=== PATIENT | female | born 1990 | race Asian ===

== ENCOUNTER 2021-07-07 20:58 | Inpatient (IN) | payer SELFPAY ==
[2021-07-07 21:44] LABS: #Basophils 0.1 thou/uL (0.0-0.2); #Eosinphils 0.4 thou/uL (0.0-0.7); #Lymphocytes 3.1 thou/uL (1.20-3.40); #Monocytes 1.3 thou/uL (0.11-0.59); #Neutrophils 13.7 thou/uL (1.40-6.50); %Basophils 0.5 % (0.0-1.0); %Eosinophils 2.3 % (0.0-10.0); %Lymphocytes 16.5 % (21.0-51.0); %Monocytes 7.1 % (0.0-10.0); %Neutrophils 73.5 % (42.0-75.0); Hemoglobin 15.4 g/dL (12.0-16.0); Mean Corpuscular HGB CONC 34.2 g/dL (32.0-36.0); Mean Corpuscular Hemoglobin 31.8 pg (27.0-31.0); Mean Platelet Volume 8.3 fL (7.4-10.4); Platelet Count 256 thou/uL (130-400); Red Blood Cell (RBC) Count 4.84 mill/uL (4.20-5.40); White Blood Cell (WBC) Count 18.6 thou/uL (4.8-10.8)
[2021-07-07 22:04] LABS: ALT (SGPT) 21 U/L (8-55); AST (SGOT) 30 U/L (5-34); Albumin 4.3 g/dL (3.5-5.0); Alkaline Phosphatase 51 U/L (40-110); Anion Gap 13 mmol/L (10-20); BUN (Urea Nitrogen) 14 mg/dL (7.0-18.7); Bilirubin, Total 0.7 mg/dL (0.2-1.2); Calc. Creatinine Clearance 0 mL/min (70-130); Calcium 9.3 mg/dL (7.8-10.44); Carbon Dioxide 22 mmol/L (22-29); Chloride 104 mmol/L (98-107); Glucose 97 mg/dL (70-105); Lipase 30 U/L (8-78); Potassium 3.8 mmol/L (3.5-5.1); Protein, Total 7.3 g/dL (6.0-8.3); Sodium 135 mmol/L (136-145)
[2021-07-07] MEDS ORDERED: Ondansetron PF 4 MG/2 ML Vial ONE (22:17)
[2021-07-07] MEDS ORDERED: Morphine 4 MG/ML VIAL ONE (22:17)
[2021-07-08] MEDS ORDERED: Piperacillin/Tazobactam 4.5 GM VIAL ONE (00:19)
[2021-07-08] MEDS ORDERED: Morphine 4 MG/ML VIAL ONE (00:19)
[2021-07-08 01:03] LABS: BHCG - Serum Negative (NEGATIVE); Pregs Control Background? CLEAR/WHITE (CLR/WHITE); Pregs Control Bar Appear? YES (CONTROL BAR)
[2021-07-08 01:54] LABS: Bilirubin Negative (Negative); Blood, Urine Negative (Negative); Clarity Clear (Clear); Glucose, Urine (Dipstick) Normal (Negative); Ketone, Urine 100 mg/dL (Negative); Leukocyte Negative Leu/uL (Negative); Nitrite Negative (Negative); Protein, Urine (Dipstick) 10 mg/dL (Neg-Trace); Urobilinogen Normal mg/dL (Less than 2); pH, Urine 5.5 (5.0-9.0)
[2021-07-08 01:56] LABS: Pregnancy Test - Urine (BHCG) Negative (Negative); Pregu Control Background? CLEAR/WHITE (CLR/WHITE); Pregu Control Bar Appear? YES (CONTROL BAR); Specific Gravity Greater than 1.060 (1.002-1.036); Specific Gravity, Urine Greater than 1.060 (1.002-1.036)
[2021-07-08] MEDS ORDERED: Morphine 4 MG/ML VIAL SLOW IVP PRN ×2 (02:42→13:36)
[2021-07-08] MEDS ORDERED: Ondansetron PF 4 MG/2 ML Vial IVP PRN ×2 (02:45→13:37)
[2021-07-08] MEDS ORDERED: Acetaminophen 325 MG TAB PO PRN ×2 (02:45→13:35)
[2021-07-08] MEDS ORDERED: Ondansetron ODT 4 MG TAB SL PRN ×2 (02:45→13:36)
[2021-07-08 02:58] VITALS: BMI 19.5
[2021-07-08 03:15] LABS: SARS-CoV-2 NAA Rapid Test Not Detected (NotDetected)
[2021-07-08] MEDS: D5 1/2 NS w/20 mEq KCL 1,000 ML IV SCH ×4 (03:22→22:22)
[2021-07-08] MEDS: Piperacillin/Tazobactam 3.375 GM in Sodium Chloride 0.9% 100 ML IVPB SCH ×2 (13:39→22:22)
[2021-07-08] MEDS ORDERED: Ondansetron ODT 4 MG TAB PO PRN (13:45)
[2021-07-08] MEDS ORDERED: Ondansetron PF 4 MG/2 ML Vial ONE (14:08)
[2021-07-08] MEDS ORDERED: Ketorolac Tromethamine 30 MG/ML VIAL ONE (14:42)
[2021-07-08] MEDS ORDERED: Lidocaine 1% w/Epinephrine 1:100K 20 ML VIAL ONE (15:53)
[2021-07-08] MEDS ORDERED: Bupivacaine 0.25% HCL 30 ML VIAL ONE (15:53)
[2021-07-08] MEDS ORDERED: Fentanyl 100 MCG/2 ML VIAL ONE (15:57)
[2021-07-08] MEDS ORDERED: Rocuronium Bromide 10 MG/ML (10ML VIAL) ONE (16:16)
[2021-07-08] MEDS ORDERED: Lidocaine 1% PF 5 ML VIAL ONE (16:16)
[2021-07-08] MEDS ORDERED: Dexamethasone 20 MG/5 ML VIAL ONE (16:16)
[2021-07-08] MEDS ORDERED: Succinylcholine 200 MG/10 ml SYRINGE FS ONE (16:16)
[2021-07-08] MEDS ORDERED: PROPOFOL 200 MG/20 ML VIAL ONE (16:16)
[2021-07-08] MEDS ORDERED: Meperidine HCl/PF 25 MG/ML VIAL ONE (17:22)
[2021-07-08] MEDS ORDERED: Ondansetron HCl/PF 4 MG/2 ML Vial IVP PRN (17:26)
[2021-07-08] MEDS ORDERED: Promethazine HCl 25 MG/ML VIAL IVPB PRN (17:26)
[2021-07-08] MEDS ORDERED: Meperidine HCl/PF 25 MG/ML VIAL SLOW IVP PRN (17:26)
[2021-07-08] MEDS ORDERED: Promethazine HCl 25 MG/ML VIAL IM PRN (17:26)
[2021-07-08 19:57] VITALS: BP 113/73; TEMP 97.7
== END 2021-07-08 23:24 | disposition home or self-care (01) | DRG 343 ==
LOC: ERS 20:58 → T4-B 07-08 00:56
PROVIDERS: ADMIT Specialist; ATTEND Specialist
PROC: 0DTJ4ZZ Resection of Appendix, Percutaneous Endoscopic Approach (ICD-10-PCS; principal; 2021-07-08)
DX: K35.80 Unspecified acute appendicitis (principal); F41.9 Anxiety disorder, unspecified; F31.9 Bipolar disorder, unspecified; F43.10 Post-traumatic stress disorder, unspecified; F17.210 Nicotine dependence, cigarettes, uncomplicated; Z20.822 Contact with and (suspected) exposure to COVID-19
CPT/HCPCS: 36415; 74177; 80053; 81003; 81025; 83690; 84703; 85025; 88304; 96365; 96375; 96376; J1100; J1885; J2175; J2270; J2405; J2543; J2704; J3010; J3480; J3490; S0020; U0002

== ENCOUNTER 2021-09-02 14:13 | Observation (INO) | payer SELFPAY ==
[2021-09-02] MEDS ORDERED: Morphine 4 MG/ML VIAL ONE (15:52)
[2021-09-02] MEDS ORDERED: Ondansetron PF 4 MG/2 ML Vial ONE ×2 (15:53→20:56)
[2021-09-02] MEDS ORDERED: Ketorolac Tromethamine 30 MG/ML VIAL ONE (17:08)
[2021-09-02 17:18] LABS: SARS-CoV-2 NAA Rapid Test Not Detected (NotDetected)
[2021-09-02 19:50] LABS: BHCG - Serum Negative (NEGATIVE); Pregs Control Background? CLEAR/WHITE (CLR/WHITE); Pregs Control Bar Appear? YES (CONTROL BAR)
[2021-09-02] MEDS ORDERED: Fentanyl 100 MCG/2 ML VIAL ONE (19:55)
[2021-09-02] MEDS ORDERED: Ketorolac Tromethamine 30 MG/ML VIAL IVP SCH (20:00)
[2021-09-02] MEDS ORDERED: CEFAZOLIN 2 GM in Premix Bag 1 BAG IVPB SCH (20:15)
[2021-09-02] MEDS ORDERED: Bacitracin Zinc Ointment 30 gm TUBE ONE (20:21)
[2021-09-02] MEDS ORDERED: Neomycin-Polymyxin 1 ML AMP ONE (20:21)
[2021-09-02] MEDS ORDERED: Bupivacaine PF 0.5% 30 ML VIAL ONE (20:22)
[2021-09-02] MEDS ORDERED: Lidocaine 1% PF 5 ML VIAL ONE (20:56)
[2021-09-02] MEDS ORDERED: PROPOFOL 200 MG/20 ML VIAL ONE (20:56)
[2021-09-02] MEDS ORDERED: Dexamethasone 20 MG/5 ML VIAL ONE (20:56)
[2021-09-02] MEDS ORDERED: ePHEDrine 50 MG/ML VIAL ONE (20:56)
[2021-09-02] MEDS ORDERED: Meperidine HCl/PF 25 MG/ML VIAL ONE (22:14)
[2021-09-02] MEDS ORDERED: Bisacodyl 10 MG SUPP PR PRN (22:33)
[2021-09-02] MEDS ORDERED: Morphine 4 MG/ML VIAL SLOW IVP PRN (22:33)
[2021-09-02] MEDS ORDERED: Promethazine HCl 25 MG/ML VIAL IM PRN (22:33)
[2021-09-02] MEDS ORDERED: traMADol HCl 50 MG TAB PO PRN (22:33)
[2021-09-02] MEDS ORDERED: Acetaminophen 325 MG TAB PO PRN (22:33)
[2021-09-02] MEDS ORDERED: HYDROcodone/Acetaminophen 5/325 mg Tablet PO PRN (22:33)
[2021-09-02] MEDS ORDERED: Fentanyl 100 MCG/2 ML VIAL SLOW IVP PRN (22:33)
[2021-09-02] MEDS ORDERED: Ondansetron PF 4 MG/2 ML Vial SLOW IVP PRN (22:33)
[2021-09-02] MEDS ORDERED: Meperidine HCl/PF 25 MG/ML VIAL IM PRN (22:38)
[2021-09-02] MEDS ORDERED: TETANUS AND DIPHTHERIA TOX/PF 0.5 ML DISP.SYRIN IM SCH (22:45)
[2021-09-02] MEDS ORDERED: Communication Order-Pharmacy FS SCH (22:45)
[2021-09-02] MEDS: Sodium Chloride 0.9% 100 ML IV SCH (23:30)
[2021-09-03] MEDS: HYDROcodone/Acetaminophen 10/325 mg Tablet PO PRN ×2 (00:31→13:15)
[2021-09-03] MEDS: Ketorolac Tromethamine 30 MG/ML VIAL IVP SCH ×4 (00:33→17:07)
[2021-09-03 00:54] VITALS: BMI 18.4
[2021-09-03] MEDS: Sodium Chloride 0.9% 100 ML IV SCH ×9 (02:20→14:25)
[2021-09-03] MEDS: Dextrose 5 % And 0.9 % NaCl 1,000 ML IV SCH ×2 (02:21→08:58)
[2021-09-03] MEDS: Gentamicin Sulfate 80 MG in Premix Bag 1 BAG IVPB SCH ×2 (05:38→11:50)
[2021-09-03] MEDS ORDERED: Gentamicin 80 MG/2 ML VIAL IVPB SCH (06:00)
[2021-09-03] MEDS ORDERED: Aspirin 81 mg Enteric Coated Tablet PO SCH (09:00)
[2021-09-03 16:31] VITALS: BP 100/54; TEMP 98.4
[2021-09-03] MEDS ORDERED: Vancomycin 1 GM in Premix Bag 1 BAG IVPB SCH (21:00)
== END 2021-09-03 18:00 | disposition home or self-care (01) ==
LOC: ERS 14:13 → SJJU 18:07
PROVIDERS: ADMIT Orthopaedic Surgery Hand Surgery; ATTEND Orthopaedic Surgery Hand Surgery
PROC: 0PBV0ZZ Excision of Left Finger Phalanx, Open Approach (ICD-10-PCS; principal; 2021-09-02)
DX: S62.631B Displaced fracture of distal phalanx of left index finger, initial encounter for open fracture (principal); S65.511A Laceration of blood vessel of left index finger, initial encounter; F17.210 Nicotine dependence, cigarettes, uncomplicated; Z20.822 Contact with and (suspected) exposure to COVID-19; W31.2XXA Contact with powered woodworking and forming machines, initial encounter
CPT/HCPCS: 36415; 76000; 84703; 96365; 96366; 96374; 96375; 96376; G0378; J1100; J1580; J1885; J2175; J2270; J2405; J2704; J3010; J3370; J3490; J7050; S0020; U0002

== ENCOUNTER 2021-10-04 12:09 | Outpatient (CLI) | payer SELFPAY ==
[2021-10-04 13:27] LABS: Hemoglobin 13.5 g/dL (12.0-15.5); Mean Corpuscular HGB CONC 31.8 g/dL (32.0-36.0); Mean Corpuscular Hemoglobin 30.1 pg (27.0-33.0); Mean Corpuscular Volume 94.6 fl (81.6-98.3); Platelet Count 264 10x3/uL (150-450); RBC Distribution Width 11.7 % (11.5-14.5); Red Blood Cell (RBC) Count 4.48 10x6/uL (3.90-5.03); White Blood Cell (WBC) Count 6.5 10x3/uL (3.5-10.5)
[2021-10-05 08:37] LABS: SARS-CoV-2 PCR by NAA Not Detected (NotDetected)
== END 2021-10-04 12:10 | disposition home or self-care (01) ==
LOC: LABBT 12:09
PROVIDERS: ATTEND Orthopaedic Surgery Hand Surgery
DX: Z01.812 Encounter for preprocedural laboratory examination (principal); S62.631B Displaced fracture of distal phalanx of left index finger, initial encounter for open fracture; Z20.822 Contact with and (suspected) exposure to COVID-19
CPT/HCPCS: 85027; U0003; U0005

== ENCOUNTER 2021-10-07 09:59 | Day surgery (SDC) | payer SELFPAY ==
[2021-10-04 11:04] VITALS: BMI 18.4
[2021-10-07] MEDS ORDERED: Bacitracin Zinc Ointment 30 gm TUBE ONE (12:28)
[2021-10-07] MEDS ORDERED: Neomycin-Polymyxin 1 ML AMP ONE (12:28)
[2021-10-07] MEDS ORDERED: Thrombin 5000 UNITS/5 ML VIAL ONE (12:28)
[2021-10-07] MEDS ORDERED: Bupivacaine PF 0.5% 30 ML VIAL ONE (12:28)
[2021-10-07] MEDS ORDERED: Fentanyl 100 MCG/2 ML VIAL ONE (12:32)
[2021-10-07] MEDS ORDERED: ceFAZolin 2 GM/Dextrose 50 ML IVPB ONE (12:40)
[2021-10-07] MEDS ORDERED: Dexamethasone 20 MG/5 ML VIAL ONE (12:53)
[2021-10-07] MEDS ORDERED: PROPOFOL 200 MG/20 ML VIAL ONE (12:53)
[2021-10-07] MEDS ORDERED: Lidocaine 1% PF 5 ML VIAL ONE (12:53)
[2021-10-07] MEDS ORDERED: Ondansetron PF 4 MG/2 ML Vial ONE (12:53)
[2021-10-07] MEDS ORDERED: Meperidine HCl/PF 25 MG/ML VIAL ONE (13:45)
[2021-10-07] MEDS ORDERED: Ketorolac Tromethamine 30 MG/ML VIAL ONE (13:54)
== END 2021-10-07 15:17 | disposition home or self-care (01) ==
LOC: SDC 09:59
PROVIDERS: ATTEND Orthopaedic Surgery Hand Surgery
PROC: 0PBV0ZZ Excision of Left Finger Phalanx, Open Approach (ICD-10-PCS; principal; 2021-10-07)
PROC: 0HTQXZZ Resection of Finger Nail, External Approach (ICD-10-PCS; principal; 2021-10-07)
DX: S62.631B Displaced fracture of distal phalanx of left index finger, initial encounter for open fracture (principal); F17.290 Nicotine dependence, other tobacco product, uncomplicated; W27.0XXA Contact with workbench tool, initial encounter
CPT/HCPCS: 76000; J0690; J1100; J1885; J2175; J2405; J2704; J3010; S0020

== ENCOUNTER 2023-07-02 17:40 | Emergency (ER) | payer OTHER ==
[2023-07-02] MEDS ORDERED: Dexamethasone 10 MG/ML VIAL ONE (18:49)
[2023-07-02] MEDS ORDERED: Diazepam 5 MG TAB ONE (18:50)
[2023-07-02] MEDS ORDERED: Ketorolac Tromethamine 30 MG/ML VIAL ONE (18:50)
== END 2023-07-02 19:25 | disposition home or self-care (01) ==
LOC: ERS 17:40
DX: M54.50 Low back pain, unspecified (principal); F17.210 Nicotine dependence, cigarettes, uncomplicated
CPT/HCPCS: 96372; 99283; J1100; J1885

== ENCOUNTER 2024-07-07 14:31 | Emergency (ER) | payer OTHER ==
[~2024-07-07 14:31] MED LIST: Iopamidol-370 76% 500 ML MDV (1 ML CHARGE) ONE
[2024-07-07 15:01] LABS: #Basophils Less than 0.03 10x3/uL (0.0-0.2); %Basophils 0.2 % (0.0-1.0); %Eosinophils 0.5 % (0.0-10.0); %Monocytes 4.5 % (0.0-10.0); %Neutrophils 90.4 % (42.0-75.0); Hematocrit 46.2 % (36.0-47.0); Hemoglobin 15.4 g/dL (12.0-16.0); Mean Corpuscular HGB CONC 33.3 g/dL (32.0-36.0); Mean Corpuscular Hemoglobin 31.8 pg (27.0-31.0); Mean Corpuscular Volume 95.5 fL (78.0-98.0); Mean Platelet Volume 9.7 fL (7.4-10.4); Platelet Count 256 10x3/uL (130-400); RBC Distribution Width 12.1 % (11.5-14.5); Red Blood Cell (RBC) Count 4.84 mill/uL (4.20-5.40)
[2024-07-07 15:16] LABS: Pregnancy Test - Urine (BHCG) Negative (Negative); Pregu Control Background? CLEAR/WHITE (CLR/WHITE); Pregu Control Bar Appear? YES (CONTROL BAR); Specific Gravity 1.004 (1.002-1.036)
[2024-07-07 15:31] LABS: Bilirubin Negative (Negative); Blood, Urine Negative (Negative); CAUTI Indications for Culture Pelvic or flank pain; Clarity Clear (Clear); Glucose, Urine (Dipstick) Normal (Negative); Ketone, Urine Negative (Negative); Leukocyte Negative Leu/uL (Negative); Nitrite Negative (Negative); Protein, Urine (Dipstick) Negative (Neg-Trace); RBC/HPF 0-3 HPF (0-3); Specific Gravity, Urine 1.004 (1.002-1.036); Squamous Epithelial 0-3 HPF (0-3); Urobilinogen Normal mg/dL (Less than 2); WBC/HPF 0-3 HPF (0-3)
[2024-07-07 15:32] LABS: ALT (SGPT) 17 U/L (8-55); AST (SGOT) 23 U/L (5-34); Albumin 3.7 g/dL (3.5-5.0); Alkaline Phosphatase 46 U/L (40-110); Anion Gap 12 mmol/L (10-20); BUN (Urea Nitrogen) 10 mg/dL (7.0-18.7); Bilirubin, Total 0.9 mg/dL (0.2-1.2); Calc. Creatinine Clearance 0 mL/min (70-130); Calcium 8.7 mg/dL (7.8-10.44); Carbon Dioxide 26 mmol/L (22-29); Chloride 104 mmol/L (98-107); Estimated GFR 117; Glucose 94 mg/dL (70-105); Lipase 33 U/L (8-78); Protein, Total 6.7 g/dL (6.0-8.3); Sodium 138 mmol/L (136-145)
[2024-07-07 15:34] LABS: Bacteria/HPF 1+ HPF (None Seen)
[2024-07-07 15:36] LABS: Urine Culture Reflex No No
[2024-07-07] MEDS ORDERED: Ketorolac Tromethamine 30 MG (1 mL) VIAL ONE (15:56)
[2024-07-07] MEDS ORDERED: Ondansetron PF 4 MG/2 ML Vial ONE (15:56)
== END 2024-07-07 18:04 | disposition home or self-care (01) ==
LOC: ERS 14:31
DX: K52.9 Noninfective gastroenteritis and colitis, unspecified (principal); F17.210 Nicotine dependence, cigarettes, uncomplicated
CPT/HCPCS: 36415; 36416; 74177; 76705; 80053; 81001; 81025; 83605; 83690; 85025; 96374; 96375; J1885; J2405; Q9967